=== PATIENT | female | born 1950 ===

== ENCOUNTER 2019-01-24 10:57 | Outpatient (CLI) | payer MEDICARE | END 2019-01-24 10:58 | disposition home or self-care (01) | LOC: C.MAMMO 10:57 | DX: Z12.31 Encounter for screening mammogram for malignant neoplasm of breast (principal) ==

== ENCOUNTER 2019-02-12 10:42 | Outpatient (CLI) | payer MEDICARE | END 2019-02-12 10:43 | disposition home or self-care (01) | LOC: C.USIC 10:42 | DX: R31.9 Hematuria, unspecified (principal) ==